=== PATIENT | female | born 1960 | race Caucasian/White ===

== ENCOUNTER → 2019-02-22 | Outpatient (CLI) | payer MEDICARE, OTHER ==
--- NOTE | 2019-02-22 13:55 | Diagnostic Imaging Report ---
EXAM: CT Chest WITHOUT intravenous contrast 02/22/2019 12:35 PM INDICATION: Lung cancer screening COMPARISON: None TECHNIQUE: Chest was scanned utilizing a multidetector helical scanner from the lung apex through the level of the adrenal glands without administration of IV contrast. Coronal and sagittal reformations were obtained. Routine protocol was performed. IV CONTRAST: None RADIATION DOSE: Total DLP: 231.8 mGy*cm. Dose modulation, iterative reconstruction, and/or weight based adjustment of the mA/kV was utilized to reduce the radiation dose to as low as reasonably achievable. COMPLICATIONS: None FINDINGS: LINES/ TUBES: None. LUNGS AND AIRWAYS: The central airways are patent. No focal consolidation. No pulmonary edema. No suspicious pulmonary nodules. PLEURA: No pleural effusion or pneumothorax. HEART AND MEDIASTINUM: The thyroid gland is normal. No supraclavicular, axillary, mediastinal, or hilar lymphadenopathy. The heart is not enlarged. No pericardial effusion. Scattered atherosclerotic coronary artery calcifications and atherosclerotic calcifications of the thoracic aorta and great vessels. Patulous esophagus with fluid and ingested contents in the dependent mid and distal esophagus. UPPER ABDOMEN: Limited noncontrast images of the upper abdomen demonstrate no focal abnormality of the partially visualized liver, spleen, pancreas, or adrenals. BONES: No acute osseous injury. No suspicious lytic or blastic lesions. SOFT TISSUES: Unremarkable. IMPRESSION: No suspicious pulmonary nodules. Patulous esophagus with fluid and ingested contents in the dependent mid and distal esophagus. This may increase the patient's risk of aspiration. Scattered atherosclerotic calcifications including of the coronary arteries. Signed by: Emilee Limon MD on 02/22/2019 1:52 PM
== END ==
LOC: CT 12:29
PROVIDERS: ATTEND Internal Medicine Critical Care Medicine
DX: Z12.2 Encounter for screening for malignant neoplasm of respiratory organs (principal)
CPT/HCPCS: 71250

== ENCOUNTER → 2021-11-19 | Outpatient (CLI) | payer MEDICARE, OTHER | LOC: DX 13:48 | PROVIDERS: ATTEND Internal Medicine Cardiovascular Disease | DX: J44.9 Chronic obstructive pulmonary disease, unspecified (principal) | CPT/HCPCS: 71046 ==

== ENCOUNTER → 2023-07-01 | Outpatient (REF) | payer MEDICARE, OTHER | LOC: RAD 12:40 | PROVIDERS: ATTEND Internal Medicine | DX: M25.511 Pain in right shoulder (principal) ==

== ENCOUNTER → 2024-03-19 | Outpatient (REF) | payer MEDICARE, OTHER | LOC: CT 14:49 | PROVIDERS: ATTEND Internal Medicine Critical Care Medicine | DX: R13.10 Dysphagia, unspecified (principal); R06.02 Shortness of breath; I99.9 Unspecified disorder of circulatory system; J44.9 Chronic obstructive pulmonary disease, unspecified | CPT/HCPCS: 71250 ==